=== PATIENT | female | born 1995 | race African-American/Black ===

== ENCOUNTER 2022-03-09 20:21 | Emergency (ER) | payer MEDICAID, SELFPAY ==
[2022-03-09 20:24] VITALS: BP 150/96; PULSE 111; RESP 20; TEMP 36.3; O2SAT 100
[2022-03-09 20:52] LABS: Basophils Percent Auto 0.3 % (0.2-1.2); Eosinophils Absolute Auto 0.1 K/mm3 (0-0.3); Eosinophils Percent Auto 0.5 % (0-4.4); Hematocrit 33.3 % (37.0-47.0); Hemoglobin 11.1 g/dL (12.0-15.0); Immature Granulocyte Absolute 0.03 K/mm3 (0.00-0.031); Immature Granulocyte Percent A 0.3 % (0-0.5); Lymphocytes Absolute Auto 1.62 K/mm3 (0.9-3.2); Lymphocytes Percent Auto 14.7 % (18.3-44.2); Mean Corpuscular HGB Conc 33.3 g/dl (32-36); Mean Corpuscular Hemoglobin 29.6 pg (26-34); Mean Corpuscular Volume 88.8 fl (80-100); Mean Platelet Volume 9.6 fl (7.4-10.4); Monocytes Absolute Auto 0.5 K/mm3 (0.1-0.6); Monocytes Percent Auto 4.6 % (2.6-8.5); Neutrophils Absolute Auto 8.8 K/mm3 (1.3-6.7); Neutrophils Percent Auto 79.6 % (45.5-73.1); Platelet Count Result 314 k/mm3 (150-375); Red Blood Count 3.75 M/mm3 (4.2-5.4); Red Cell Distribution Width 14.5 % (11.5-14.5)
[2022-03-09 20:57] LABS: Alanine Aminotransferase 18 U/L (6-35); Alkaline Phosphatase 60 U/L (38-126); Anion Gap 10 mmol/L (8-16); Aspartate Amino Transferase 29 U/L (14-36); Bilirubin,Total 0.4 mg/dL (0.2-1.3); Blood Urea Nitrogen 10 mg/dL (7-17); Calcium 9.3 mg/dL (8.4-10.2); Carbon Dioxide 23 mmol/L (22-30); Chloride 103 mmol/L (98-107); Estimated Glomerular Filt Rate > 60; Glucose 91 mg/dL (65-110); Lipase 81 U/L (23-300); Potassium 3.7 mmol/L (3.4-5.0); Sodium 136 mmol/L (137-145)
[2022-03-09 21:10] VITALS: BP 136/84; PULSE 89; RESP 16; O2SAT 98
[2022-03-09] MEDS: LACTATED RINGERS 1,000 ML 999 ML IV CONT (21:14)
[2022-03-09] MEDS: FAMOTIDINE 20 MG/2 ML VIAL IV PUSH (21:14)
[2022-03-09] MEDS: METOCLOPRAMIDE HCL INJ 10 MG/2 ML VIAL IV PUSH (21:14)
[2022-03-09] MEDS: diphenhydrAMINE HCl INJ 50 MG/ML VIAL 25 MG IV PUSH (21:14)
--- NOTE | 2022-03-09 21:14 | ED.HA ---
HPI - Headache General Chief Complaint: Headache Stated Complaint: Headache, 16 weeks preg, dental pain Time Seen by Provider: 03/09/22 20:47 Source: patient and RN notes reviewed Mode of arrival: ambulatory Limitations: no limitations History of Present Illness HPI Narrative: This is 27 year old female 16 weeks GA who presents for evaluation of headache . She developed frontal throbbing headache yesterday. This headache has been constant . She started having nausea and vomiting today, and this has caused her to have left dental pain. She reports her left dental pain is causing her left facial pain and swelling. She denies fever, chill, sore throat, runny nose, congestion, abdominal pain or diarrhea. She states she was eating tomato soup today. She had 3 episodes of emesis. First episode was her tomato soup. Second episode was clear and she reports third episode has red strings in emesis . She has not have bowel movement today. She rates her pain 8/10. She also reports preeclampsia with her last . Her blood pressure has been high during this . She has appointment at [facility] on Thursday. Related Data Allergies Allergy/AdvReac Type Severity Reaction Status Date / Time amoxicillin Allergy Mild Rash Verified 03/09/22 20:35 Review of Systems Review of Systems: All systems reviewed & are unremarkable except as noted in HPI and below Constitutional: Constitutional: Denies chills, Denies fatigue and Denies fever(s) Eyes: Eyes: Denies change in vision and Denies photophobia ENT: Denies nasal congestion and Denies sore throat Cardiovascular: Cardiovascular: Denies chest pain Gastrointestinal: Gastrointestinal: Denies abdominal pain, Denies diarrhea, Reports nausea and Reports vomiting Genitourinary: Genitourinary: Denies dysuria Musculoskeletal: Musculoskeletal: Denies back pain Neurologic: Reports headache(s) and Denies focal weakness PMFSH Past Medical History Medical History (Updated 03/10/22 @ 01:03 by Nicci Dior MD) Preeclampsia Surgical History Surgical History (Updated 03/09/22 @ 21:24 by Nicci Dior MD) H/O foot surgery Social History Social History (Updated 03/09/22 @ 21:24 by Nicci Dior MD) Smoking status: Never smoker Exam Const: General: no acute distress Nutritional Appearance: well nourished Orientation/consciousness: patient oriented x3 Limitations: no limitations HENMT: Head: normal to inspection General nose exam: Normal external nose present Face and sinus: normal facial exam Mouth: Yes Normal oral and palatal mucosa present Teeth and gingiva: caries (20) and other (no gum swelling) Throat: posterior oropharynx normal, tonsils normal and uvula midline Eyes: Pupils: Equal, round and reactive pupils present EOM: EOMs intact bilaterally Chest: Chest palpation & inspection: normal inspection of the chest Resp: Effort & Inspection: normal respiratory effort Auscultation: clear to auscultation bilaterally Cardio: Rate: tachycardic Rhythm: regular rhythm Heart sounds: no murmurs GI: GI Palp: Yes Soft to palpation, No Tenderness to palpation present (GI) and No Guarding due to palpation present (GI) Auscultation: normal bowel sounds Other: gravid Back/Spine/Pelvis: Back: no CVA tenderness Skin: General skin exam: normal color Rashes: no rashes Wounds: no wounds Neuro: General: patient oriented x3, moves all extremities and CN's II-XI intact bilaterally Cranial nerves: Yes Nystagmus not present Psych: Mental Status: mental status grossly normal Affect: normal affect Course Reevaluation(s) Reevaluation #1: PAtient states she feels better. HEr headache and nausea have resolved. She denies any questions or concerns. I am awaiting urine sample. Patient is aware. Date: 03/09/22 Time: 22:40 Reevaluation #2: PAtient feels better. She is able to tolerate PO. She will be treated for dental infecti
[2022-03-09 22:31] VITALS: BP 123/74; PULSE 84; RESP 16; O2SAT 100
--- NOTE | 2022-03-09 22:39 | PC.NURSE ---
FHT [id number]
[2022-03-09 23:05] LABS: SARS-CoV-2 RNA PCR Negative
--- NOTE | 2022-03-09 23:15 | PC.NURSE ---
Patient report received from JIMI Webb. Assumed care of patient at this time.
[2022-03-09 23:44] LABS: Appearance Urine Clear (Clear); Bilirubin Urine Negative (Negative); Blood Urine Trace-lysed (Negative); Color Urine Yellow (Yellow); Glucose Urine UA Negative (Negative); Ketones Urine 4+ mg/dL (Negative); Leukocyte Esterase Ur Negative LEU/UL (Negative); Nitrate Urine Negative (Negative); Protein Urine Trace mg/dL (Negative); Urobilinogen Urine 0.2 mg/dL (<2.0); pH Urine 6.5 (5.0-9.0)
[2022-03-09 23:46] LABS: Bacteria Urine Trace /hpf; Mucus Urine Rare /lpf; Squamous Epithelial Cell Urine Occasional /hpf (Few); WBC Urine 0-3 /hpf
[2022-03-09 23:48] LABS: Add Urine Microscopic? YES
--- NOTE | 2022-03-10 00:21 | PC.NURSE ---
Patient tolerated PO challenge well.
[2022-03-10 01:14] VITALS: PULSE 101; RESP 17; O2SAT 100
== END 2022-03-10 01:15 | disposition home or self-care (01) ==
PROVIDERS: Emergency Medicine; Emergency Provider General Practice; PCP Internal Medicine
DX: E86.0 Dehydration (principal); G43.909 Migraine, unspecified, not intractable, without status migrainosus; K04.7 Periapical abscess without sinus; Z20.822 Contact with and (suspected) exposure to COVID-19
CPT/HCPCS: 36415; 80053; 81001; 83690; 85025; 96361; 96374; 96375; 99284; C9803; J0131; J1200; J2765; J7120; U0003; U0005